=== PATIENT | male | born 1970 ===

== ENCOUNTER → 2022-02-27 | Emergency (ER) | payer MEDICAID ==
[~2022-02-27] VITALS: Ht 180.3 cm; Wt 85.0 kg
[2022-02-27 23:47] VITALS: BP 153/117
== END | disposition home or self-care (01) ==
LOC: ER 23:23 → EDBD 23:23
DX: F41.9 Anxiety disorder, unspecified (principal); F19.90 Other psychoactive substance use, unspecified, uncomplicated